=== PATIENT | female | born 1925 | race Caucasian/White ===

== ENCOUNTER 2016-08-01 14:01 | Inpatient (IN) ==
[2016-08-01] MEDS ORDERED: 0.9 % SODIUM CHLORIDE 250 ML IV SCH (14:15)
--- NOTE | 2016-08-01 14:33 | XRay Report ---
CLINICAL INFORMATION: Vomiting COMPARISON: 08/14/2014 FINDINGS: The heart has increased in size and is now markedly enlarged. Mediastinum is unremarkable. Pulmonary vessels are moderately distended. There is interstitial edema throughout both lungs. No definite infiltrate. Small left pleural effusion noted. IMPRESSION: Moderate CHF Interpreted and Authenticated by: Jonas Salas 08/01/16
[2016-08-01 14:58] LABS: Mean Corpuscular HGB Conc 32.9 g/dL (31.0-36.0); Platelet Count 291 K/mcL (140-440); RBC 3.83 M/mcL (4.00-5.20); Red Cell Distribution Width 13.1 % (11.5-14.5)
[2016-08-01 15:33] LABS: ALT/SGPT 21 U/l (0-40); Albumin 3.7 gm/dL (3.2-5.2); Albumin/Globulin Ratio 1.2 (1.0-2.3); Alkaline Phosphatase 81 U/L (39-117); Blood Urea Nitrogen 27 mg/dl (8-23)
--- NOTE | 2016-08-01 15:37 | Cat Scan Report ---
CLINICAL INFORMATION: Decreased consciousness COMPARISON: None. TECHNIQUE: 2.5 mm helical slices were obtained in the skull base to vertex. Following reconstruction, axial reformatted images were reviewed at bone and parenchymal windows. FINDINGS: The ventricles, sulci, fissures, and cisterns are minimally enlarged compatible with moderate age-related atrophy - no extra-axial fluid collections or masses appreciated. Moderate chronic ischemic changes are noted in the cerebral white matter. A large region of vasogenic edema is present in in the parafalcine left frontal lobe - near vertex. Suspect underlying mass lesion such as a glioma on the order of 5 cm area There is no intracerebral hemorrhage. Bone windows show severe right TMJ degeneration. Small air-fluid level in the sphenoid sinus IMPRESSION: Moderate size region of vasogenic edema in the parafalcine left frontal lobe near vertex. Suspect underlying mass lesion such as metastasis or glioma. Patient will return for contrast-enhanced head CT Moderate atrophy and extensive chronic ischemic changes in the cerebral white matter - expected for age Small air-fluid level sphenoid sinus compatible with acute sphenoid sinusitis. Interpreted and Authenticated by: Jonas Salas 08/01/16
--- NOTE | 2016-08-01 15:46 | Emergency Department Note ---
General Adult HPI - General Chief complaint: Bleeding Other Stated complaint: Found down, coffee ground emesis Time Seen by Provider: 08/01/16 14:13 Source: EMS Mode of arrival: EMS Limitations: other - History of Present Illness HPI Narrative: Patient is brought in by EMS with a history of being found down in her house and laying on the floor. She was unconscious when EMS arrived, she is was exhibiting agonal breathing, and respirations, does have a history of COPD and without any further documentation or paperwork. The patient was intubated with a 7 mm endotracheal tube and was brought to the hospital. EMS did noted that there was blood and coffee ground emesis smeared on the wall. No other history is obtainable from the patient, however, the son did arrive and does have a copy of her living will. She didn't wish not to be on a ventilator or have her life artificially prolonged by heroic measures, i.e. artificial respiration. The. EMS did note that her oxygen levels were in the 50s on scene. She was also nonresponsive.patient sees Dr. Miranda for primary care - Related Data Home Medications Medication Instructions Recorded Confirmed Oxygen 2 liter via nasal cannula 11/22/14 06/14/16 calcium carbonate 500 mg calcium 500 mg PO QDAY tab 11/22/14 06/14/16 (1,250 mg) tablet cholecalciferol (vitamin D3) 2,000 2,000 unit PO QDAY cap 11/22/14 06/14/16 unit capsule cyanocobalamin (vit B-12) 1,000 1,000 mcg PO QDAY tab 11/22/14 06/14/16 mcg tablet ibuprofen 200 mg tablet 200 mg PO QDAY tab 11/22/14 06/14/16 Previous Rx's Medication Instructions Recorded budesonide 0.5 mg/2 mL suspension 0.5 mg INHALATION BID 30 Days 12/30/14 for nebulization trazodone 100 mg tablet See Dose Instructions .ROUTE QHS 01/20/15 PRN #180 tab nitroglycerin 0.4 mg sublingual 0.4 mg SUBLINGUAL Q5-15MIN PRN #25 04/26/15 tablet tab hydrochlorothiazide 25 mg tablet 25 mg PO QDAY 90 Days 07/21/15 amlodipine 10 mg tablet 10 mg PO BID 90 Days 01/13/16 omeprazole 20 mg capsule,delayed 20 mg PO QDAY #90 cap 02/09/16 release tramadol 50 mg tablet 50 mg PO TID PRN 30 Days 02/17/16 hydrocodone 5 mg-acetaminophen 325 1 tab PO QID PRN 28 Days 04/26/16 mg tablet ipratropium-albuterol 0.5 mg-3 3 ml INHALATION QID #270 ml 06/21/16 mg(2.5 mg base)/3 mL nebulization soln albuterol sulfate HFA 90 2 puff INHALATION Q6H PRN #18 g 07/24/16 mcg/actuation aerosol inhaler Allergies Allergy/AdvReac Type Severity Reaction Status Date / Time Egg Derived Allergy Unknown Unknown Verified 06/14/16 17:12 milk Allergy Unknown Unknown Verified 06/14/16 17:12 alendronate sodium AdvReac Other Verified 06/14/16 17:12 [From [facility]] Review of Systems Limitations: ROS unobtainable due to patients medical condition Past Medical History - Past Medical History Medical history: Reports: COPD, other (Atrial tachycardia, rectal surgery, oophorectomy, colonoscopy, appendectomy, spinal stenosis of the lumbar region, thyroidism, hypertension, COPD, aortic valve insufficiency, anemia) - Social History smoking status: Former smoker Alcohol use: Reports: None Drug use: Reports: none Physical Exam - General Limitations: language barrier, altered mental status, other General appearance: lethargic, obtunded, cachectic - Head Head exam: atraumatic, normocephalic - Eye Eye exam: Present: conjunctival injection, other (sluggish pupillary response, doll's eye) - ENT ENT exam: mucous membranes moist - Neck Neck exam: Absent: meningismus - Chest Chest inspection: Present: other (Rhonchi and rales audible throughout) - Respiratory Respiratory exam: Present: respiratory distress - Cardiovascular Cardiovascular exam: Present: regular rate - Abdominal Exam Abdominal exam: Present: soft, diminished bowel sounds. Absent: distention - Extremities Exam Extremities exam: Present: normal inspection, other (General cachexia. She is flaccid on the right arm as well as right leg). Absent: joint swelling - Back Exam Back exam: Present: normal inspection - Neurological Exam Neurological exam: Present: other (comatose, o purposeful movement, does not respond to name her voices,she has a hearing aid in place in the left ear. Flaccid right arm, flaccid right leg Eisertdeviating to the left side) - Skin Skin exam: Present: warm Course Vital Signs Pulse Rate 97 H 08/01/16 14:03 Respiratory Rate 14 08/01/16 14:03 Blood Pressure 172/80 08/01/16 14:03 Pulse Oximetry (%) 100 08/01/16 14:03 Pulse Rate 97 H 08/01/16 14:03 Respiratory Rate 14 08/01/16 14:03 Blood Pressure 172/80 08/01/16 14:03 Pulse Oximetry (%) 100 08/01/16 14:03 Medical Decision Making - MDM Narrative Medical decision making narrative: Head CT reviewed with Dr. Harsha rasmussen. He thinks she has a tumor on the brain still was felt to do a study with IV contrast. The. Laboratory studies are pending, at this point. Working diagnosis is acute CVA, comfort care requested by the son who does havePOA. Discussed with Dr. Whaley - Lab Data Result diagrams: 08/01/16 14:30 08/01/16 14:30 Lab Results 08/01/16 08/01/16 08/01/16 Range/Units 14:30 14:30 14:30 WBC 14.2 H (4.5-11.0) K/mcL RBC 3.83 L (4.00-5.20) M/mcL Hgb 11.9 L (12.0-15.0) g/dL Hct 36.0 (36.0-48.0) % MCV 94.0 (80.0-100.0) fL MCH 31.0 (26.0-34.0) pg MCHC 32.9 (31.0-36.0) g/dL RDW 13.1 (11.5-14.5) % Plt Count 291 (140-440) K/mcL MPV 7.5 (7.4-10.4) fL Band Neutrophils % Not Reportable PT 13.7 (11.9-14.5) sec INR 1.0 (0.9-1.1) Sodium 134 (133-145) mmol/L Potassium 6.4 H* (3.3-5.1) mmol/L Chloride 94 L (96-108) mmol/L Carbon Dioxide 25 (22-30) mmol/L Anion Gap 15.0 (8-16) BUN 27 H (8-23) mg/dl Creatinine 1.0 (0.6-1.1) mg/dl GFR Calculation 50 Glucose 123 H (70-105) mg/dL Calcium 9.2 (8.6-10.4) mg/dl Total Bilirubin 0.5 (0.0-1.0) mg/dL AST 53 H (0-37) U/l ALT 21 (0-40) U/l Alkaline Phosphatase 81 (39-117) U/L Total Protein 6.9 (5.9-8.4) gm/dL Albumin 3.7 (3.2-5.2) gm/dL Globulin 3.2 (2.2-3.7) gm/dL Albumin/Globulin Ratio 1.2 (1.0-2.3) [facility]position [facility] Referrals: Dave Miranda MD [Primary Care Provider] -
[2016-08-01 16:00] LABS: Lymphocytes % 2 % (15-49); Monocytes % (Manual) 6 % (1-12); Platelet Estimate NORMAL (NORMAL); RBC Morphology NORMAL (NORMAL); Segmented Neutrophils % 92 % (38-78)
[2016-08-01] MEDS ORDERED: ALBUTEROL SULFATE 2.5 MG/3 ML NEBULIZER NEB PRN (17:33)
[2016-08-01] MEDS ORDERED: LACTOPEROXI/GLUC OXID/POT THIO 1 EACH GEL..EA. TOPICAL PRN (17:33)
[2016-08-01] MEDS ORDERED: ONDANSETRON 4 MG/2 ML VIAL IV PRN (17:33)
--- NOTE | 2016-08-01 17:49 | Internal Med History&Physical ---
Medical - H&P: [facility] Patient information: Note initiated : 08/01/16 at 5:39 pm Service Date, if different from initiated Date: [] Patient: Marie Vazquez 89 y/o F admitted on 08/01/16 for Found down, coffee ground emesis. Chief Complaint: [] History of present illness: Ms. Vazquez is a 89 year old female with h/o of multiple medical problems, DNR, who was found down in her home, by her health care technician, duration not know, the patient had some dark coloured vomit on the rhodes, and was unresponsive on the floor. EMS was called who noted that the patient had agonal breathing, the patient was transported to the hospital, during transportation the patient became hypoxic and the patient was intubated the EMS was unaware of the patients code status. in the emergency room the patient' son brought in the patient's advance directives that the patient is observation on life support The patient that the patient be moved from life support the patient was extubated in the emergency room. CT scan of the head was done that shows vasogenic edema, patient on exam had right side complete paresis. CXR showed aspiration pneumonia and chf. the patient's family was made aware of the diagnosis. Radiology official diagnosis for the CT head is possible that the patient may have acute,clinically she may have also had a stroke the patient's family chose to pursue palliative care for the patient They are well aware that the patient will not survive this admission However in light of the patient's wishes and the severity of condition , it was chosen to the patient be kept comfortable. patient was admitted to medical floor for palliative care. ROS unobtainable: due to mental status Medical - H&P: PMH Medical history: Medical History (Last Updated 08/01/16 @ 17:49 by Maricel Harden MD) Strain of left hip (Acute) Weight loss (Chronic) Multifocal atrial tachycardia (Chronic) History of tobacco use (Chronic) Spinal stenosis of lumbar region (Chronic) Prominent aorta (Chronic) Osteoporosis (Chronic) Microscopic hematuria (Chronic) Irritable bowel syndrome (Chronic) Insomnia (Chronic) Hypothyroidism, acquired (Chronic) Hypertension (Chronic) Facet arthropathy (Chronic) Edema (Chronic) Dyspepsia (Chronic) Degenerative arthritis (Chronic) Degeneration of thoracic intervertebral disc (Chronic) Degeneration of lumbar or lumbosacral intervertebral disc (Chronic) Chronic obstructive pulmonary disease (Chronic) Arthritis (Chronic) Aortic valve insufficiency (Chronic) Angina at rest (Chronic) Anemia (Chronic) Surgical history: Past Surgical History (Last Updated 07/26/16 @ 14:19 by [facility]) History of rectal surgery (Chronic) History of oophorectomy (Chronic) History of colonoscopy (Chronic) History of appendectomy (Chronic) History of abdominal surgery (Chronic) Family history: reviewed and not pertinent Medical - H&P: Meds Home Medications Medication Instructions Recorded Confirmed Type Oxygen 2 liter via nasal cannula 11/22/14 06/14/16 History calcium carbonate 500 mg calcium 500 mg PO QDAY tab 11/22/14 06/14/16 History (1,250 mg) tablet cholecalciferol (vitamin D3) 2,000 2,000 unit PO QDAY cap 11/22/14 06/14/16 History unit capsule cyanocobalamin (vit B-12) 1,000 1,000 mcg PO QDAY tab 11/22/14 06/14/16 History mcg tablet ibuprofen 200 mg tablet 200 mg PO QDAY tab 11/22/14 06/14/16 History budesonide 0.5 mg/2 mL suspension 0.5 mg INHALATION BID 30 Days 12/30/14 Rx for nebulization trazodone 100 mg tablet See Dose Instructions .ROUTE QHS 01/20/15 06/14/16 Rx PRN #180 tab nitroglycerin 0.4 mg sublingual 0.4 mg SUBLINGUAL Q5-15MIN PRN #25 04/26/1508/25 Rx tablet tab hydrochlorothiazide 25 mg tablet 25 mg PO QDAY 90 Days 07/21/15 06/14/16 Rx amlodipine 10 mg tablet 10 mg PO BID 90 Days 01/13/16 06/14/16 Rx omeprazole 20 mg capsule,delayed 20 mg PO QDAY #90 cap 02/09/16 06/14/16 Rx release tramadol 50 mg tablet 50 mg PO TID PRN 30 Days 02/17/16 06/14/16 Rx hydrocodone 5 mg-acetaminophen 325 1 tab PO QID PRN 28 Days 04/26/16 06/14/16 Rx mg tablet ipratropium-albuterol 0.5 mg-3 3 ml INHALATION QID #270 ml 06/21/16 Rx mg(2.5 mg base)/3 mL nebulization soln albuterol sulfate HFA 90 2 puff INHALATION Q6H PRN #18 g 07/24/16 Rx mcg/actuation aerosol inhaler Allergies Allergy/AdvReac Type Severity Reaction Status Date / Time Egg Derived Allergy Unknown Unknown Verified 06/14/16 17:12 milk Allergy Unknown Unknown Verified 06/14/16 17:12 alendronate sodium AdvReac Other Verified 06/14/16 17:12 [[facility] Medical - H&P: Exam - Constitutional Vitals: Pulse Resp BP Pulse Ox 86 18 141/61 98 08/01/16 17:10 08/01/16 17:10 08/01/16 17:01 08/01/16 17:10 Exam: GENERAL: The patient is a fragile and dehydrated, in mild distress, opens eyes to verbal commands. [id number] VITAL SIGNS: Reviewed and as noted elsewhere. HEENT: Head is normocephalic, temporal wasting noted, Extraocular muscles are intact. Pupils are equal, round, and reactive to light. Nares appeared normal. Mucous membranes are dry. NECK: Normal to inspection, Supple, No lymphadenopathy or thyromegaly. LUNGS: Air entry equal on both sides, no wheezing, crackles or rhonchi noted. No accessory muscles of respiration HEART: Regular rate and rhythm normal, S1 and S2 heard, no Gallop, S3 or Rub Noted, No Gross murmur heard. ABDOMEN: Soft, nontender, and nondistended. Positive bowel sounds. No hepatosplenomegaly was noted. EXTREMITIES: No cyanosis, clubbing, rash, lesions or edema. NEUROLOGIC: Cranial nerves II through XII unable to asseess due to poor understanding. right leg and hand hemiplegic. PSYCHIATRIC: non verbal, drowsy SKIN: No ulceration or wounds noted, No jaundice, Medical - H&P: Reslt - Labs CBC & Chem 7: 08/01/16 14:30 08/01/16 14:30 Medical - H&P: A/P - Narrative A/P Narrative: a/p CVA/ Pneumonia/ CHF Palliative Care: Due to above conditions and patients wishes, patient will be kept comfortable, discussed with son in the room that patient will not survive this admission, which they understood. They expressed that this is the patients whish. patient will be given morphine for air hunger, ativan for anxiety, prn oxygen as needed. comfort care as per protocol. Social History - Social History household members: spouse housing: house lives independently: Yes marital status: occupational status: retired - Tobacco smoking status: Former smoker - Alcohol alcohol intake frequency: does not drink - Substance use substance use type: does not use
[2016-08-01] MEDS ORDERED: IPRATROPIUM/ALBUTEROL 3 ML AMPUL.NEB NEB PRN (20:02)
[2016-08-01] MEDS: 0.9 % SODIUM CHLORIDE 10 ML SYRINGE IV SCH (21:13)
[2016-08-01] MEDS: 0.9 % SODIUM CHLORIDE 1,000 ML IV SCH (21:14)
[2016-08-02] MEDS: 0.9 % SODIUM CHLORIDE 10 ML SYRINGE IV SCH ×3 (06:22→22:25)
[2016-08-02] MEDS ORDERED: POLYVINYL ALCOHOL OPHTH DROPS 15ML BOTTLE OU SCH (08:30)
--- NOTE | 2016-08-02 10:20 | Internal Med Progress Note ---
Medical - PN: Subj Patient information: Note initiated : 08/02/16 at 10:19 am Service Date, if different from initiated Date: [] Patient: Marie Vazquez a 89 y/o F admitted on 08/01/16 for Found Down, Coffee Ground Emesis/CVA, PNA, CHF. Chief Complaint: [] Interval history: Ms. Vazquez is a 89 year old female with h/o of multiple medical problems, DNR, who was found down in her home, by her critical care cns, duration not know, the patient had some dark coloured vomit on the rhodes, and was unresponsive on the floor. EMS was called who noted that the patient had agonal breathing, the patient was transported to the hospital, during transportation the patient became hypoxic and the patient was intubated the EMS was unaware of the patients code status. in the emergency room the patient' son brought in the patient's advance directives that the patient is observation on life support The patient that the patient be moved from life support the patient was extubated in the emergency room. CT scan of the head was done that shows vasogenic edema, patient on exam had right side complete paresis. CXR showed aspiration pneumonia and chf. the patient's family was made aware of the diagnosis. Radiology official diagnosis for the CT head is possible that the patient may have acute,clinically she may have also had a stroke the patient's family chose to pursue palliative care for the patient They are well aware that the patient will not survive this admission However in light of the patient's wishes and the severity of condition , it was chosen to the patient be kept comfortable. patient was admitted to medical floor for palliative care. 08/02: Patient seen examined, she seems better today with her mental status, wanting to eat or drink something. Patient remains hemiplegic, with not much movement in the left side. The patient has overall poor prognosis, Patient family still want to persue palliative care in light of overall poor prognosis and patients wishes. I reviewed the patients condition with her PCP who also agreed that palliative care at this stage is the best option for the patient. Pertinent ROS: unable - Constitutional Vitals: Vital Signs Temp Pulse Resp BP Pulse Ox 98.1 F 93 H 14 163/74 95 08/02/16 06:41 08/01/16 20:45 08/02/16 06:41 08/02/16 06:41 08/02/16 07:29 Period Temp Pulse Resp BP Sys/Toussaint Pulse Ox Last 24 Hr 98.1 F-98.9 F 93 14-16 125-185/71-75 93-98 Intake and Output 08/01/16 08/02/16 08/02/16 21:59 05:59 13:59 Intake Total 0 / 0 Output Total 1 / Balance -1 / -1 0 / 0 Weight 98 lb 8 oz Intake & Output: Intake & Output 08/01/16 08/02/16 08/02/16 21:59 05:59 13:59 Intake Total 0 / 0 Output Total 1 Balance -1 / -1 0 / 0 Weight 98 lb 8 oz Intake: Oral 0 / 0 Output: # of times incontinent of urine Other: # Voids 0 Exam: Constitutional; Afebrile, awake, obeys commands, speaks a few words, hard of hearing. dry mucosa. Eyes- No icterus, , No periorbital swelling Ears- Ext ear normal, hearing normal to conversation. Neck- Midline trachea, supple Respiratory system: Air Entry equal on both sides, No crackles or wheezing, no rhonchi. CVS- Rate rhythm regular, S1,S2 heard, no gallop, no rub. Abdomen- Soft nontender abdomen, no organomegaly, no tenderness, no guarding or rigidity, FAMILY AND MARRIAGE COUNSELLOR- AOOx1, hemiplegic right side. Medical - PN: Obj Da - Labs CBC & Chem 7: 08/01/16 14:30 08/01/16 14:30 Meds: Medications Albuterol/Ipratropium (Duoneb) 3 ml NEB Q4HP PRN PRN Reason: Shortness Of Breath Or Wheezin Artificial Tears (Artificial Tears Ophth Drops) 1 gtt OU QIDP TANIA Glucose Oxid/Lactoperoxid/Muramidas (Biotene) 1 each TOPICAL PRN PRN PRN Reason: Dry Mouth Sodium Chloride (Sodium Chloride 0.9%) 1,000 mls @ 20 mls/hr IV .Q24H [facility] Last Admin: 08/01/16 21:14 Dose: 20 mls/hr Lorazepam (Ativan) 0 mg IV Q1HP PRN; Protocol PRN Reason: ANXIETY/SEDATION Morphine Sulfate (Morphine) 4 mg NEB Q4HP PRN PRN Reason: Shortness Of Breath Morphine Sulfate (Morphine) 0 mg IV Q1HP PRN PRN Reason: Pain Last Admin: 08/02/16 09:34 Dose: 2 mg Ondansetron HCl (Zofran) 4 mg IV Q4HP PRN PRN Reason: Nausea And Vomiting Sodium Chloride (Saline Flush) 10 ml IV Q8 TANIA Last Admin: 08/02/16 06:22 Dose: Not Given Medical - PN: A/P - Time Spent With Patient Total time spent is greater than 50% in coordination of care (as documented) at patient's floor/unit and/or counseling patient: - Narrative A/P Narrative: Palliative care: continue with palliative care, support provided to family, no aggressive interventions in light of poor prognosis. Ok to feed patient for palliative reasons. Dispo: If patient remains stable, inpatient palliative care under swing status vs xfer to NH under palliative care will be considered. Medical - PN: Qual - Stroke Onset of Symptoms Date: 08/01/16 Symptom Onset Unknown: Yes - VTE Deep Vein Thrombosis/Pulmonary Embolism Present on Admission: No
[2016-08-02] MEDS: LORazepam 2 MG/ML VIAL IV PRN (19:24)
[2016-08-03] MEDS: LORazepam 2 MG/ML VIAL IV PRN ×2 (00:33→19:52)
[2016-08-03] MEDS: 0.9 % SODIUM CHLORIDE 1,000 ML IV SCH (00:34)
[2016-08-03] MEDS: 0.9 % SODIUM CHLORIDE 10 ML SYRINGE IV SCH ×2 (07:55→13:28)
[2016-08-03] MEDS ORDERED: MAGNESIUM HYDROXIDE 30 ML ORAL.SUSP PO PRN (08:41)
[2016-08-03] MEDS ORDERED: FLEETS ADULT ENEMA PR PRN (08:41)
[2016-08-03] MEDS ORDERED: BISACODYL 10 MG SUPP.RECT PR PRN (08:41)
--- NOTE | 2016-08-03 09:08 | Internal Med Progress Note ---
Medical - PN: Subj Patient information: Note initiated : 08/03/16 at 9:05 am Service Date, if different from initiated Date: [] Patient: Marie Vazquez a 89 y/o F admitted on 08/01/16 for Found Down, Coffee Ground Emesis/CVA, PNA, CHF. Chief Complaint: [] Interval history: Ms. Vazquez is a 89 year old female with h/o of multiple medical problems, DNR, who was found down in her home, by her hourly caregiver, duration not know, the patient had some dark coloured vomit on the rhodes, and was unresponsive on the floor. EMS was called who noted that the patient had agonal breathing, the patient was transported to the hospital, during transportation the patient became hypoxic and the patient was intubated the EMS was unaware of the patients code status. in the emergency room the patient' son brought in the patient's advance directives that the patient is observation on life support The patient that the patient be moved from life support the patient was extubated in the emergency room. CT scan of the head was done that shows vasogenic edema, patient on exam had right side complete paresis. CXR showed aspiration pneumonia and chf. the patient's family was made aware of the diagnosis. Radiology official diagnosis for the CT head is possible that the patient may have acute,clinically she may have also had a stroke the patient's family chose to pursue palliative care for the patient They are well aware that the patient will not survive this admission However in light of the patient's wishes and the severity of condition , it was chosen to the patient be kept comfortable. patient was admitted to medical floor for palliative care. 08/02: Patient seen examined, she seems better today with her mental status, wanting to eat or drink something. Patient remains hemiplegic, with not much movement in the left side. The patient has overall poor prognosis, Patient family still want to persue palliative care in light of overall poor prognosis and patients wishes. I reviewed the patients condition with her PCP who also agreed that palliative care at this stage is the best option for the patient. 08/03 Pt seen examined, no acute overnight events, doing well, tolerating po well , more alert, but still unable to move the right side of her body. AT this time , I feel palliative care is the best course for her, will consider PT/ OT for palliative purposes. Pt is hard of hearing but denies any acute complaints. Pertinent ROS: unable due to mental status. - Constitutional Vitals: Vital Signs Temp Pulse Resp BP Pulse Ox 98.1 F 96 H 20 181/104 93 08/03/16 06:23 08/02/16 20:00 08/03/16 06:23 08/03/16 06:23 08/03/16 06:23 Period Temp Pulse Resp BP Sys/Toussaint Pulse Ox Last 24 Hr 98.1 F-98.8 F 96 16-20 181-191/91-104 93-93 Intake and Output 08/02/16 08/03/16 08/03/16 21:59 05:59 13:59 Intake Total 230 / 230 547 / 547 Output Total 125 / 125 325 / 325 Balance 105 / 105 222 / 222 Weight 97 lb 8 oz Intake & Output: Intake & Output 08/02/16 08/03/16 08/03/16 21:59 05:59 13:59 Intake Total 230 / 230 547 / 547 Output Total 125 / 125 325 / 325 Balance 105 / 105 222 / 222 Weight 97 lb 8 oz Intake: IV 547 / 547 Sodium Chloride 0.9% 1, 547 / 547 000 ml @ 20 mls/hr IV . Q24H [facility] Rx#:[id number] Oral 230 / 230 Output: Urine Catheter Amount 125 / 125 Void Amount 325 / 325 Other: Meal Peaches 1/2 cup Percent of Meal Consumed Bites Only Feeding Ability Total Assistance Exam: Constitutional; Afebrile, cooperative, alert, not in distress. Eyes- No icterus, , No periorbital swelling Ears- Ext ear normal, very hard to hearing. Neck- Midline trachea, supple Respiratory system: Air Entry equal on both sides, No crackles or wheezing, no rhonchi. CVS- Rate rhythm regular, S1,S2 heard, no gallop, no rub. Abdomen- Soft nontender abdomen, no organomegaly, no tenderness, no guarding or rigidity, BED MANAGER- AOOx0, right side hemiplegia. Medical - PN: Obj Da - Labs CBC & Chem 7: 08/01/16 14:30 08/01/16 14:30 Meds: Medications Albuterol/Ipratropium (Duoneb) 3 ml NEB Q4HP PRN PRN Reason: Shortness Of Breath Or Wheezin Artificial Tears (Artificial Tears Ophth Drops) 1 gtt OU QIDP [facility] Last Admin: 08/02/16 10:30 Dose: 1 gtt Bisacodyl (Dulcolax) 10 mg NC Q2-3DAYS PRN PRN Reason: Constipation Glucose Oxid/Lactoperoxid/Muramidas (Biotene) 1 each TOPICAL PRN PRN PRN Reason: Dry Mouth Sodium Chloride (Sodium Chloride 0.9%) 1,000 mls @ 20 mls/hr IV .Q24H [facility] Last Admin: 08/03/16 00:34 Dose: 20 mls/hr Lorazepam (Ativan) 0 mg IV Q1HP PRN; Protocol PRN Reason: ANXIETY/SEDATION Last Admin: 08/03/16 00:33 Dose: 1 mg Magnesium Hydroxide (Milk Of Magnesia) 30 ml PO DAILYP PRN PRN Reason: Constipation Morphine Sulfate (Morphine) 4 mg NEB Q4HP PRN PRN Reason: Shortness Of Breath Morphine Sulfate (Morphine) 0 mg IV Q1HP PRN PRN Reason: Pain Last Admin: 08/03/16 07:46 Dose: 4 mg Ondansetron HCl (Zofran) 4 mg IV Q4HP PRN PRN Reason: Nausea And Vomiting Sodium Biphosphate/Sodium Phosphate (Fleets Adult) 1 dose NC Q3-4DAYS PRN PRN Reason: Constipation Sodium Chloride (Saline Flush) 10 ml IV Q8 [facility] Last Admin: 08/03/16 07:55 Dose: Not Given Medical - PN: A/P - Time Spent With Patient Total time spent is greater than 50% in coordination of care (as documented) at patient's floor/unit and/or counseling patient: - Narrative A/P Narrative: Palliative care: continue with palliative care, support provided to family, no aggressive interventions in light of poor prognosis. Ok to feed patient for palliative reasons. Consider OT/ PT for palliative reasons, SNF vs Home with hospice, SW to review options with the family. Family updated on the discussions with her PCP, who also agreed with palliative care. Medical - PN: Qual - Stroke Onset of Symptoms Date: 08/01/16 Symptom Onset Unknown: Yes - VTE Deep Vein Thrombosis/Pulmonary Embolism Present on Admission: No
--- NOTE | 2016-08-03 10:54 | Discharge Summary ---
Medical - DS: Prov Patient information: Note initiated : 08/03/16 at 10:53 am Service Date, if different from initiated Date: [] Patient: Marie Vazquez 89 y/o F admitted on 08/01/16 for Found Down, Coffee Ground Emesis/CVA, PNA, CHF. Chief Complaint: [] Date of admission: 08/01/16 17:14 Discharge date: 08/04/16 Primary care physician: Dave Miranda Admitting clinician: Maricel Harden Discharging clinician: Maricel Harden Medical - DS: Meds - Discharge Medications Prescriptions: LORazepam [Ativan] 1 mg PO Q8HP PRN #30 tablet PRN Reason: Anxiety morphine SULFATE [Morphine Sulfate] 5 - 10 mg PO Q4H PRN #150 ml PRN Reason: anxiety/ pain. Ondansetron HCl [Zofran ODT] 4 mg SL Q4-6HP PRN #20 tablet PRN Reason: nausea and or vomiting. Active and Home Medications: Home Medications Oxygen 2 liter via nasal cannula 11/22/14 [History Confirmed 06/14/16 Last Taken Unknown] calcium carbonate 500 mg calcium (1,250 mg) tablet 500 mg PO QDAY tab 11/22/14 [History Confirmed 06/14/16 Last Taken Unknown] cholecalciferol (vitamin D3) 2,000 unit capsule 2,000 unit PO QDAY cap [History Confirmed 08/01/16 Last Taken Unknown] cyanocobalamin (vit B-12) 1,000 mcg tablet 1,000 mcg PO QDAY tab 11/22/14 [ History Confirmed 06/14/16 Last Taken Unknown] ibuprofen 200 mg tablet 200 mg PO QDAY tab 11/22/14 [History Confirmed Last Taken Unknown] budesonide 0.5 mg/2 mL suspension for nebulization 0.5 mg INHALATION BID 30 Days 12/30/14 [Rx Confirmed 08/01/16 Last Taken Unknown] trazodone 100 mg tablet See Dose Instructions .ROUTE QHS PRN #180 tab 01/20/15 [ Rx Confirmed 08/01/16 Last Taken Unknown] nitroglycerin 0.4 mg sublingual tablet 0.4 mg SUBLINGUAL Q5-15MIN PRN #25 tab [Rx Confirmed 08/01/16 Last Taken Unknown] hydrochlorothiazide 25 mg tablet 25 mg PO QDAY 90 Days 07/21/15 [Rx Confirmed Last Taken Unknown] amlodipine 10 mg tablet 10 mg PO BID 90 Days 01/13/16 [Rx Confirmed 08/01/16 Last Taken Unknown] omeprazole 20 mg capsule,delayed release 20 mg PO QDAY #90 cap 02/09/16 [Rx Confirmed 08/01/16 Last Taken Unknown] tramadol 50 mg tablet 50 mg PO TID PRN 30 Days 02/17/16 [Rx Confirmed 08/01/16 Last Taken Unknown] hydrocodone 5 mg-acetaminophen 325 mg tablet 1 tab PO QID PRN 28 Days 04/26/16 [ Rx Confirmed 08/01/16 Last Taken Unknown] ipratropium-albuterol 0.5 mg-3 mg(2.5 mg base)/3 mL nebulization soln 3 ml INHALATION QID #270 ml 06/21/16 [Rx Confirmed 08/01/16 Last Taken Unknown] albuterol sulfate HFA 90 mcg/actuation aerosol inhaler 2 puff INHALATION Q6H PRN #18 g 07/24/16 [Rx Confirmed 08/01/16 Last Taken Unknown] Aspirin [Lo-Dose Aspirin EC] 81 mg PO DAILY 08/01/16 [History Confirmed Last Taken Unknown] Docusate Sodium [Colace] 100 mg PO DAILY 08/01/16 [History Confirmed 08/01/16 Last Taken Unknown] Senna 1 tab PO DAILY PRN 08/01/16 [History Confirmed 08/01/16 Last Taken Unknown ] Medical - DS: Hosp Hospital course: Mr. Vazquez is a 89 year old female with h/o COPD oxygen dependent, Chr arthritis , HTN, HLD, who was found down by her critical care nurse specialist. The patient was noted to be in respiratory distress and was intubated by the EMS. On arriving in the ER, in line with the patients advance directives the patient was extubated terminally. The patient underwent CXR which showed aspiration pneumonia, and CT head which showed edema on the left cortex, tumor vs CVA. Clinically the patient had complete right side hemiplegia. In line with the patients wishes and at the request of family the patient was placed under palliative care. The patient was managed unde palliative care. her home medications were stopped and the patient was started on morphine and ativan for air hunger and anxiety. She will continue oxygen and duonebs for respiratory comfort. the patient is able to communicate now, and is otherwise hemodynamically stable. Her neurological deficit remains severe, Right upper arm is 0/5, Right lower leg is 1/5. Patient will be transferred to a rehab facility for ongoing Palliative care and therapy. Discharge diagnosis: right cva - Time Spent with Patient Total time spent providing and/or coordinating discharge services: Greater than 30 minutes Medical - DS: Exam - Constitutional Vitals: Vital Signs Temp Pulse Resp BP BP Pulse Ox 08/03/16 06:23 98.1 F 20 181/104 93 08/02/16 20:00 98.8 F 96 H 20 191/91 93 08/02/16 16:27 16 Intake and Output 08/02/16 08/03/16 08/03/16 21:59 05:59 13:59 Intake Total 230 / 230 547 / 547 100 / 100 Output Total 125 / 125 325 / 325 150 / 150 Balance 105 / 105 222 / 222 -50 / -50 Intake: IV 547 / 547 Sodium Chloride 0.9% 1, 547 / 547 000 ml @ 20 mls/hr IV . Q24H [facility] Rx#:[id number] Oral 230 / 230 100 / 100 Output: Urine Catheter Amount 125 / 125 Void Amount 325 / 325 150 / 150 Uretheral (Ramírez) 150 / 150 Other: Meal Peaches 1/2 cup 6 bites, swallowing difficulties w/peaches Percent of Meal Consumed Bites Only Feeding Ability Total Assistance Total Assistance Weight 97 lb 8 oz Additional comments: Constitutional; Afebrile, cooperative, alert, not in distress. frail old lady. Eyes- No icterus, , No periorbital swelling Ears- Ext ear normal, hearing hard to conversation Neck- Midline trachea, supple Respiratory system: Air Entry equal on both sides, No crackles or wheezing, no rhonchi. CVS- Rate rhythm regular, S1,S2 heard, no gallop, no rub. 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 Ondansetron HCl [Zofran ODT] 4 mg SL Q4-6HP PRN #20 tablet PRN Reason: nausea and or vomiting. Other Amb Orders: OT Discharge Order Location: Determined By Patient Physical Therapy at Discharge - General Location: Determined By Patient ST Discharge Order Location: Determined By Patient - Follow up Plan Follow up with: Dave Miranda MD [Primary Care Provider] - Disposition: Xfer SNF Prognosis: Serious Rehab Potential: Serious I certify that the patient requires SNF services: Yes Overall status at discharge: patient is not back to baseline Medical - DS: Qual - VTE Deep Vein Thrombosis/Pulmonary Embolism Present on Admission: No
[2016-08-04] MEDS: 0.9 % SODIUM CHLORIDE 10 ML SYRINGE IV SCH ×2 (04:05→06:38)
[2016-08-04] MEDS: 0.9 % SODIUM CHLORIDE 1,000 ML IV SCH (04:15)
== END 2016-08-04 11:00 | DRG 64 ==
LOC: ED 14:01 → MEDSUR 17:14
PROVIDERS: ADMIT Internal Medicine; ATTEND Internal Medicine